=== PATIENT | female | born 1955 | race Caucasian/White ===

== ENCOUNTER → 2017-01-10 | Outpatient (CLI) | payer BC ==
[2015-06-11 13:55] VITALS: BP 148/87
[~2017-01-10] MED LIST: ALBU2.5V14 NEB; ALBU8.5H8 IH; ASPI-482 PO; CARV12.5 PO; CARV25TA2 PO; CETI10TA22 PO; CIPR500T94 PO; CYAN100072 PO; ESTR1TAB15 PO; FLUT16SP2 NS; FLUT16SP21 NS; FLUT1DIS IH; GABA-586 PO; LOSA100T2 PO; LOSA100T6 PO; MECL25TA3 PO; METF10002 PO; METF500T4 PO; MULT1TAB77 PO; OMEP40CA5 PO; POTA99TA PO; PRED5TAB19 PO; VITA1TAB19 PO; ZOLP5TAB5 PO
--- NOTE | 2017-01-10 14:26 | RAD ---
CT study of the abdomen and pelvis without contrast Clinical indications: Gross hematuria. Technique: Noncontrast helical CT scanning of the abdomen and pelvis was performed. Without contrast, the sensitivity to detect organ pathology and GI tract pathology is decreased. PQRS Compliance Statement: One or more of the following individualized dose reduction techniques were utilized for this examination: 1. Automated exposure control 2. Adjustment of the mA and/or kV according to patient size 3. Use of iterative reconstruction technique Comparison: June 11, 2015. Findings: The liver and spleen are homogeneous in appearance on this noncontrast study. Diffuse fatty infiltration of the liver is seen. The pancreas is homogeneous in appearance on this noncontrast study. The gallbladder is surgically absent. No abnormal extra hepatic biliary ductal dilatation is seen. No adrenal mass is evident on the right side. 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 Multiple punctate bilateral renal stones are seen. No hydronephrosis or hydroureter or ureteral stone is seen. Urinary bladder wall is smooth. Uterus is surgically absent. No obstructive bowel pattern is evident. A moderate-sized hiatal hernia is seen. No free air or free fluid or mesenteric inflammatory changes seen. No lung base consolidation is evident. The heart size is mildly enlarged. No osteolytic process is seen. IMPRESSION: Multiple bilateral nonobstructing punctate renal stones. No hydronephrosis or hydroureter or ureteral stone is evident.
== END | disposition home or self-care (01) ==
LOC: CT 13:37
PROVIDERS: ATTEND Nurse Practitioner Adult Health
DX: N20.0 Calculus of kidney (principal); I51.7 Cardiomegaly; K76.0 Fatty (change of) liver, not elsewhere classified; D17.79 Benign lipomatous neoplasm of other sites; K44.9 Diaphragmatic hernia without obstruction or gangrene; R35.0 Frequency of micturition; Z90.710 Acquired absence of both cervix and uterus; Z87.442 Personal history of urinary calculi; Z90.49 Acquired absence of other specified parts of digestive tract
CPT/HCPCS: 74176

== ENCOUNTER → 2018-06-13 | Outpatient (CLI) | payer BC ==
[2015-06-11 13:55] VITALS: BP 148/87
[~2018-06-13] MED LIST changes: +ALBU2.5V8 IH; -ALBU8.5H8 IH; +LOSA100T14 PO; -LOSA100T6 PO; -METF10002 PO; +METF10007 PO; +METF500T16 PO; -METF500T4 PO
[2018-06-13 09:38] LABS: BASO % 0 % (0-3); EOS # 0.1 x10^3/uL (0.0-0.7); EOS % 1 % (0-3); HEMATOCRIT 34.7 % (36.0-47.0); HEMOGLOBIN 11.7 g/dL (12.0-15.5); LYMPH # 1.8 x10^3/uL (1.0-4.8); LYMPH % 27 % (24-48); MEAN CORPUSCULAR HEMOGLOBIN 31 pg (25-35); MEAN CORPUSCULAR HGB CONC 34 g/dL (31-37); MEAN CORPUSCULAR VOLUME 92 fL (79-100); MONO # 0.5 x10^3/uL (0.0-1.1); MONO % 7 % (0-9); NEUT # 4.5 x10^3uL (1.8-7.7); NEUT % 64 % (31-73); PLATELET COUNT 240 x10^3/uL (140-400); RED BLOOD COUNT 3.79 x10^6/uL (3.50-5.40); RED CELL DISTRIBUTION WIDTH 14.3 % (11.5-14.5); WHITE BLOOD COUNT 6.9 x10^3/uL (4.0-11.0)
[2018-06-13 10:09] LABS: CALCIUM 9.1 mg/dL (8.5-10.1); CREATININE 0.8 mg/dL (0.6-1.0); GFR 73.2; POTASSIUM 3.8 mmol/L (3.5-5.1)
== END | disposition home or self-care (01) ==
LOC: LAB 09:00
PROVIDERS: ATTEND Family Medicine
DX: R07.89 Other chest pain (principal)
CPT/HCPCS: 36415; 80048; 82553; 84484; 85025

== ENCOUNTER → 2019-11-17 | Outpatient (CLI) | payer BC ==
[2015-06-11 13:55] VITALS: BP 148/87
[~2019-11-17] MED LIST changes: -CETI10TA22 PO; +CETI10TA74 PO; +MECL-75 PO; -MECL25TA3 PO; +OMEP40CA45 PO; -OMEP40CA5 PO
--- NOTE | 2019-11-17 12:31 | RAD ---
Exam: CT abdomen/pelvis without intravenous contrast Indication: Hematuria x1 1/2 weeks, lower abdominal pain. Comparison: CT abdomen pelvis 01/10/2017 Technique: Helical CT imaging performed of the abdomen and pelvis without the use of intravenous contrast. Sagittal and coronal reformats were obtained. One or more of the following individualized dose reduction techniques were utilized for this examination: 1. Automated exposure control 2. Adjustment of the mA and/or kV according to patient size 3. Use of iterative reconstruction technique. Findings: Inherently limited evaluation without intravenous contrast. Lower chest: Unchanged moderate hiatal hernia. Lung bases are clear. Heart size is normal. Liver: The liver is normal in size and diffusely low in attenuation. A calcification along the posterior right hepatic lobe is unchanged. Gallbladder/Biliary Tree: Post cholecystectomy. Bile ducts are normal. Pancreas: Normal. Spleen: Normal. Adrenal Glands: Unchanged benign 2 cm fat-containing left adrenal nodule. Right adrenal gland is normal. Kidneys/Ureters/Bladder: There is a 6 mm calculus in the mid left ureter resulting in new mild hydronephrosis. Increased nephrolithiasis with calculi measuring up to 5 mm. There is increased right nephrolithiasis with increased size of a large calculus in the renal pelvis measuring 1.5 cm. No right hydronephrosis. The right ureter is normal. Bladder is normal. Reproductive Organs: Uterus is surgically absent. No adnexal mass. Stomach, small bowel, and colon: Moderate hiatal hernia. Duodenal diverticulum is noted. No small bowel obstruction. The colon is normal. Appendix is not visualized. Vasculature: Abdominal aorta is normal caliber. Mild calcified aortoiliac atherosclerosis. Lymph Nodes: Prominent portacaval lymph node measuring 1 cm, unchanged. No lymphadenopathy. Peritoneum and retroperitoneum: No free fluid or free air. Bones: No acute osseous abnormality. Impression: 1. New mild left hydronephrosis due to a 6 mm calculus in the mid left ureter. Increased bilateral nephrolithiasis including a large calculus in the right renal pelvis. 2. Moderate hiatal hernia. 3. Hepatic steatosis. Electronically signed by: Mayra Jimenez MD (11/17/2019 12:28 PM) [id number]
== END | disposition home or self-care (01) ==
LOC: CT 11:33
PROVIDERS: ATTEND Family Medicine
DX: K57.10 Diverticulosis of small intestine without perforation or abscess without bleeding (principal); N20.2 Calculus of kidney with calculus of ureter; K44.9 Diaphragmatic hernia without obstruction or gangrene; K76.0 Fatty (change of) liver, not elsewhere classified; R30.0 Dysuria; R31.0 Gross hematuria; I25.10 Atherosclerotic heart disease of native coronary artery without angina pectoris; Z90.710 Acquired absence of both cervix and uterus
CPT/HCPCS: 74176

== ENCOUNTER 2019-11-20 04:37 | Emergency (ER) | payer BC ==
[~2019-11-20] VITALS: Ht 157.5 cm; Wt 101.0 kg
--- NOTE | 2019-11-20 04:43 | PHYS DOC ---
Past History Past Medical History: Diabetes, Hypertension, Kidney Infection, Kidney Stones, UTI, Other (RACHID LANDRY MD) Past Surgical History: Other (RACHID LANDRY MD) Alcohol Use: None Drug Use: None (RACHID LANDRY MD) General Adult HPI: HPI: " I ve been having blood in my urine for past two weeks.. I ve been at [facility].. they did a CT.. but I never heard the results.. I am on Bactrim.. for UTI.. but got this lower fullness.. and I am still pee all the time..." Patient is 64 yr old female who presents with above hx and complaints of hematuria x 2 weeks. Patient has a past medical history of seasonal allergies, bronchitis, sleep apnea, hiatal hernia, cholecystectomy appendectomy morbid obesity, hysterectomy, kidney stones, urinary tract infections, plantar fasciitis, carpal tunnel syndrome, ganglion on cyst of wrist, and diabetes type 2. Patient has history of [address] completed on 11/17/2019 showed a stone 6 mm mid left with mild hydronephrosis. (See CT results. ) The pt. follows with Dr. Clancy. (RACHID LANDRY MD) Review of Systems: Review of Systems: Constitutional: Denies fever or chills Eyes: Denies change in visual acuity HENT: Denies nasal congestion or sore throat Respiratory: Denies cough or shortness of breath Cardiovascular: Denies chest pain or edema GI: Hx. abdominal pain, nausea,. Hematuria. Pt. denies vomiting, bloody stools or diarrhea : Denies dysuria Musculoskeletal: Denies back pain or joint pain Integument: Denies rash Neurologic: Denies headache, focal weakness or sensory changes Endocrine: Denies polyuria or polydipsia Lymphatic: Denies swollen glands Psychiatric: Denies depression or anxiety (RACHID LANDRY MD) Heart Score: Risk Factors: Risk Factors: DM, Current or recent (<one month) smoker, HTN, HLP, family history of CAD, obesity. Risk Scores: Score 0 - 3: 2.5% MACE over next 6 weeks - Discharge Home Score 4 - 6: 20.3% MACE over next 6 weeks - Admit for Clinical Observation Score 7 - 10: 72.7% MACE over next 6 weeks - Early Invasive Strategies (RACHID LANDRY MD) Family History: Family History: Mother has history of abuse with hypertension and hemophilia. Has 2 brothers with diabetes and coronary artery disease. (RACHID LANDRY MD) Current Medications: Current Meds: See nursing for home meds (RACHID LANDRY MD) Allergies: Allergies: Allergies Coded Allergies Type Severity Reaction Last Updated Verified morphine Allergy Severe stops breathing 08/07/13 Yes oxycodone Allergy Severe stops breathing 08/07/13 Yes Iodinated Contrast- Oral and IV Dye Allergy Intermediate Rash 08/07/13 Yes cephalexin Allergy Intermediate lips swollen 08/07/13 Yes hydromorphone Allergy Intermediate Swelling 04/12/14 Yes ibuprofen Allergy Intermediate swelling of lips 08/07/13 Yes tomato Allergy Intermediate 05/04/15 Yes celecoxib Allergy Mild GI UPSET 08/07/13 Yes penicillin G Allergy Mild RASH 08/07/13 No adhesive tape Allergy Unknown 06/11/15 Yes povidone-iodine Adverse Reaction Mild RASH 08/07/13 Yes (RACHID LANDRY MD) Physical Exam: PE: Constitutional: , no acute distress, non-toxic appearance. [] HENT: Normocephalic, atraumatic, bilateral external ears normal, oropharynx moist, no oral exudates, nose normal. [] Eyes: PERRLA, EOMI, conjunctiva injected, no discharge. [] Neck: Normal range of motion, no tenderness, supple, no stridor. [] Cardiovascular:Heart rate regular rhythm, no murmur [] Lungs & Thorax: Bilateral breath sounds equal at apex on auscultation [] Abdomen: Bowel sounds normal, soft, no tenderness, no masses, no pulsatile masses. Obese. Old surgery scars Skin: Warm, dry, no erythema, no rash. [] Back: No tenderness, no CVA tenderness. [] Extremities: No tenderness, no cyanosis, no clubbing, ROM intact, no edema. [] Neurologic: Alert and oriented X 3, moves extremities on request, has decreased distal sensory, no focal deficits noted. [] Psychologic: Affect anxious, judgement normal, mood normal. [] (RACHID LANDRY MD) EKG: EKG: [] (RACHID LANDRY MD) Radiology/Procedures: Radiology/Procedures: [] (RACHID LANDRY MD) Course & Med Decision Making: Course & Med Decision Making Pertinent Labs and Imaging studies reviewed. (See chart for details) Continue to push fluids. Follow up urine cultures. Follow-up with Dr. Archuleta. Take Tylenol as needed. Impression: 1. Renal stone [address] 916 2. History of hematuria 3. History of urinary tract infection [] (RACHID LANDRY MD) Course & Med Decision Making Patient presents the ED with complaints of increased urinary frequency, suprapubic pressure and hematuria. Today starts day 6 of her Bactrim. No longer has flank pain or radiculopathy. CT from November 16 reviewed showing 6 mm left ureterolithiasis a 1.5 mm nephrolithiasis. Patient will be referred to urology for lithotripsy, had a prior stent placed and declines this method of treatment. Will prescribed Azo for symptom relief. Patient calm, well- appearing in no distress-does not appear to have any active renal colic. Strict ED return precautions given for inability to urinate, worsening fever or flulike symptoms. Encouraged urgent outpatient follow-up with PMD and urology. Life-threatening processes were considered but are low suspicion at this time, given history and physical exam. Pt was educated on all prescription medications and adverse effects. All patient's questions were answered and pt was stable at time of discharge. Differential includes obstructive nephropathy, sepsis or shock, urinary retention or pyelonephritis I spoken with the patient and her caregivers. I explained the patient's condition, diagnoses and treatment plan based on the information available to me at this time. I have answered the patient and her caregiver's questions and addressed any concerns. The patient and her caregivers have a good understanding of patient's diagnosis, condition and treatment plan as can be expected at this point. Vital signs have been stable. Patient's condition is stable and appropriate for discharge from the emergency department. Patient will pursue further outpatient evaluation with primary care physician or other designated or consulting physician as outlined in the discharge instructions. The patient and/or caregivers are agreeable to this plan of care and follow-up instructions have been explained in detail. The patient and/or caregivers have received these instructions in written form and have expressed an understanding of the discharge instructions. The patient and/or caregivers are aware that any significant change of condition or worsening of symptoms should prompt immediate return to this or the closest emergency department or call to 911. (SHAY COY DO) Dragon Disclaimer: Dragon Disclaimer: This electronic medical record was generated, in whole or in part, using a voice recognition dictation system. (RACHID LANDRY MD) Departure Departure: Impression: Primary Impression: Suprapubic pain Additional Impressions: Increased urinary frequency Hematuria Nephrolithiasis Ureterolithiasis Disposition: HOME/RESIDENCE PRIOR TO ADM Condition: STABLE Referrals: LIDIA CLANCY MD (PCP) Have urinalysis repeated next Friday with pcp Patient Instructions: Diet for Kidney Stones, Hematuria, Adult, Urinary Frequency Additional Instructions: [facility] - to discuss lithotripsy for kidney stone treatment [phone], call to make an appointment Scripts Phenazopyridine Hcl (PHENAZOPYRIDINE HCL) 200 Mg Tablet 1 TAB PO TID for urinary discomfort for 3 Days, #9 TAB 0 Refills after food Prov: SHAY COY DO 11/20/19 Phenazopyridine Hcl (PHENAZOPYRIDINE HCL) 200 Mg Tablet 1 TAB PO TID for urinary discomfort for 3 Days, #9 TAB 0 Refills after food Prov: SHAY COY DO 11/20/19 Justification of Admission: Justification of Admission: Justification of Admission Dx: N/A (RACHID LANDRY MD) Justification of Admission Dx: N/A (SHAY COY DO) Dragon Disclaimer This chart was dictated in whole or in part using Voice Recognition software in a busy, high-work load, and often noisy Emergency Department environment. It may contain unintended and wholly unrecognized errors or omissions. (RACHID LANDRY MD) RACHID LANDRY MD Nov 20, 2019 04:43 SHAY COY DO Nov 20, 2019 06:25
[2019-11-20] MEDS ORDERED: PHENAZOPYRIDINE 200 MG TABLET. PO ONE (05:30)
[2019-11-20 05:54] LABS: BILIRUBIN,URINE NEG (NEG); CLARITY,URINE CLOUDY; COLOR,URINE AMBER; GLUCOSE,URINE NEG (NEG)
[2019-11-20 05:55] LABS: BACTERIA,URINE FEW /HPF (0-FEW); NITRITE,URINE NEG (NEG); RBC,URINE >40 /HPF (0-2); SQUAMOUS EPITHELIAL CELL,UR FEW /LPF; UROBILINOGEN,URINE 0.2 mg/dL (0.2 mg/dL)
[2019-11-20] MEDS ORDERED: GLIP5TAB10 PO (06:16)
[2019-11-20] MEDS ORDERED: TELM40TA7 PO (06:16)
[2019-11-20] MEDS ORDERED: AMLO10TA8 PO (06:16)
[2019-11-20] MEDS ORDERED: GABA-585 PO (06:18)
[2019-11-20] MEDS ORDERED: iron PO (06:18)
[2019-11-20] MEDS ORDERED: vitamin D (06:18)
[2019-11-20] MEDS ORDERED: PHEN-444 PO ×2 (06:22→06:50)
[2019-11-20 06:32] VITALS: BP 139/79
== END 2019-11-20 06:32 | disposition home or self-care (01) ==
LOC: ER 04:37
DX: N13.2 Hydronephrosis with renal and ureteral calculous obstruction (principal); E11.9 Type 2 diabetes mellitus without complications; I10 Essential (primary) hypertension; Z87.440 Personal history of urinary (tract) infections; Z88.5 Allergy status to narcotic agent; Z91.041 Radiographic dye allergy status; Z88.6 Allergy status to analgesic agent; Z91.018 Allergy to other foods; Z88.0 Allergy status to penicillin
CPT/HCPCS: 81001; 99283